=== PATIENT | male | born 1970 | race African-American/Black ===

== ENCOUNTER 2016-11-07 02:33 | Inpatient (IN) | payer OTHER ==
[2016-11-07 02:46] VITALS: BMI 21.4
--- NOTE | 2016-11-07 03:04 | PDOC ---
[id number] 46 year old male with significant medical hx of borderline DM who is presenting to the ED with abdominal pain and nausea since 9:30 PM. Patient complains of diffuse abdominal pain that he describes as a pressure. He reports having a small BM earlier in the evening that was normal, without any blood or mucous. The patient also endorses passing more gas than usual. The patient came to the ED tonight because he couldnt sleep from the discomfort. The patients last meal was a piece of pork and some vegetables. He states that other people ate the same food and they felt fine afterwards. Denies fever, chills, dysuria, vomiting, or diarrhea. 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 <Emily Patino - Last Filed: 11/07/16 03:53> <Moy Singh - Last Filed: 12/06/16 23:20> - General Chief Complaint: Pain, Acute Stated Complaint: ABDOMINAL PAIN Past History <Emily Patino - Last Filed: 11/07/16 03:53> - Past Medical History Anemia: No Asthma: No Cancer: No Cardiac Disorders: No CVA: No COPD: No CHF: No Dementia: No Diabetes: No GI Disorders: No Disorders: No HTN: No Hypercholesterolemia: No Liver Disease: No Seizures: No Thyroid Disease: No Other medical history: HIV - Surgical History Abdominal Surgery: No Appendectomy: No Cardiac Surgery: No Cholecystectomy: No Lung Surgery: No Neurologic Surgery: No Orthopedic Surgery: No - Psycho/Social/Smoking Cessation Hx Suicidal Ideation: No Smoking History: Never smoked Hx Alcohol Use: Yes (OCCASIONAL) Drug/Substance Use Hx: No Substance Use Type: Alcohol Hx Substance Use Treatment: No <Moy Singh - Last Filed: 12/06/16 23:20> - Past Medical History Allergies/Adverse Reactions: Allergies Allergy/AdvReac Type Severity Reaction Status Date / Time No Known Drug Allergies Allergy Verified 11/07/16 12:01 PINEAPPLE Allergy Mild Hives Uncoded 11/07/16 12:01 Home Medications: Ambulatory Orders Emtricitabine/Tenofovir (Tdf) [Truvada 200 mg-300 mg Tablet] 1 each PO DAILY Oxycodone HCl/Acetaminophen [Percocet 5-325 mg Tablet] 1 tab PO Q4H PRN #20 tablet MDD 6 11/09/16 Review of Systems - Review of Systems Comments:: 11/07/16 04:03 GENERAL/CONSTITUTIONAL: No fever or chills. No weakness. HEAD, EYES, EARS, NOSE AND THROAT: No change in vision. No ear pain or discharge. No sore throat. CARDIOVASCULAR: No chest pain or shortness of breath. RESPIRATORY: No cough, wheezing, or hemoptysis. GASTROINTESTINAL: Abdominal pain, nausea. No vomiting, diarrhea or constipation. GENITOURINARY: No dysuria, frequency, or change in urination. MUSCULOSKELETAL: No joint or muscle swelling or pain. No neck or back pain. SKIN: No rash NEUROLOGIC: No headache, vertigo, loss of consciousness, or change in strength/ sensation. <Emily Patino - Last Filed: 11/07/16 03:53> *Physical Exam - Vital Signs Last Vital Signs Temp Pulse Resp BP Pulse Ox 98.3 F 82 18 156/86 99 11/07/16 02:42 11/07/16 02:42 11/07/16 02:42 11/07/16 02:42 11/07/16 02:42 - Physical Exam Comments: 11/07/16 04:03 GENERAL: Awake, alert, and fully oriented, in no acute distress HEAD: No signs of trauma EYES: PERRLA, EOMI, sclera anicteric, conjunctiva clear ENT: Auricles normal inspection, hearing grossly normal, nares patent, oropharynx clear without exudates. Moist mucosa NECK: Normal ROM, supple, no lymphadenopathy, JVD, or masses LUNGS: Breath sounds equal, clear to auscultation bilaterally. No wheezes, and no crackles HEART: Regular rate and rhythm, normal S1 and S2, no murmurs, rubs or gallops ABDOMEN: Abdominal distention. Diffuse abdominal pain upon palpation. No McBurneys point tenderness, no Jefferson sign. Hypoactive bowel sounds. Prominent umbilicus without hernia. EXTREMITIES: Normal range of motion, no edema. No clubbing or cyanosis. No cords, erythema, or tenderness NEUROLOGICAL: Cranial nerves II through XII grossly intact. Normal speech, normal gait SKIN: Warm, Dry, normal turgor, no rashes or lesions noted. ENDOCRINE: No increased thirst. No abnormal weight change. HEMATOLOGIC/LYMPHATIC: No anemia, easy bleeding, or history of blood clots. ALLERGIC/IMMUNOLOGIC: No hives or skin allergy. <Emily Patino - Last Filed: 11/07/16 03:53> - Vital Signs Last Vital Signs Temp Pulse Resp BP Pulse Ox 98.3 F 82 18 156/86 99 11/07/16 02:42 11/07/16 02:42 11/07/16 02:42 11/07/16 02:42 11/07/16 02:42 <Moy Singh - Last Filed: 12/06/16 23:20> ED Treatment Course - LABORATORY CBC & Chemistry Diagram: 11/07/16 03:30 11/07/16 03:30 - Medications Given in the ED: ED Medications Discontinued Medications Generic Name Dose Route Start Last Admin Trade Name Jamshid PRN Reason Stop Dose Admin Ondansetron HCl 4 mg 11/07/16 03:43 11/07/16 03:51 Zofran Injection IVPUSH 11/07/16 03:44 4 mg ONCE ONE Administration <Emily Patino - Last Filed: 11/07/16 03:53> - LABORATORY CBC & Chemistry Diagram: 11/09/16 06:45 11/07/16 03:30 <Moy Singh - Last Filed: 12/06/16 23:20> Medical Decision Making - Medical Decision Making 11/07/16 06:40 This is a 46yo m with abdominal pain and nausea. He has a mildly distended abdomen and pain on palpation. He has no rebound or guarding. Appears mildly dehydrated. Labs are grossly wnl. His PE is reassuring. He will be signed out to the next MD who will follow up the CT and disposition the patient. 11/07/16 07:02 CT shows evidence of appendicitis with 8.8mm dilated appendix; no other pathology acutely noted. I have started the patient on antibiotics, analgesia, antiemetics. I have paged surgery information technology administrator and will admit for this. <Moy Singh - Last Filed: 12/06/16 23:20> *DC/Admit/Observation/Transfer - Attestations Scribe Attestion: 11/07/16 04:05 Documentation prepared by Emily Patino, acting as medical transport specialist for Moy Singh MD. <Sukumar,Emily - Last Filed: 11/07/16 03:53> - Discharge Dispostion Admit: Yes - Attestations Physician Attestion: 12/06/16 23:19 I, Dr. Moy Singh MD, attest that this document has been prepared under my direction and personally reviewed by me in its entirety. I further attest, that it accurately reflects all work, treatment, procedures and medical decision -making performed by me. <Moy Singh - Last Filed: 12/06/16 23:20> Diagnosis at time of Disposition: Appendicitis Qualifiers: Appendicitis type: acute appendicitis Acute appendicitis type: other Qualified Code(s): K35.89 - Other acute appendicitis - Discharge Dispostion Condition at time of disposition: Guarded - Prescriptions - Referrals
[2016-11-07] MEDS ORDERED: ONDANSETRON 4 MG/2 ML VIAL ONE ×2 (03:43→07:17)
[2016-11-07] MEDS ORDERED: ONDANSETRON 4 MG/2 ML VIAL IVPUSH ONE ×2 (03:43→07:03)
[2016-11-07] MEDS ORDERED: HYOSCYAMINE SULFATE 0.375 MG TAB.ER.12H PO ONE (03:43)
[2016-11-07 04:08] LABS: ALBUMIN 4.1 g/dl (3.4-5.0); ANION GAP 10 (8-16); BILIRUBIN,TOTAL 0.9 mg/dL (0.2-1.0); CALCIUM 8.9 mg/dL (8.5-10.1); CO2 28 mmol/L (21-32); CREATININE 1.3 mg/dL (0.7-1.3); GLUCOSE,RANDOM 159 mg/dL (74-106); SGPT/ALT 31 U/L (12-78); TOT PROT 7.1 g/dl (6.4-8.2)
[2016-11-07 04:10] LABS: ALK PHOS 83 U/L (45-117); TROPONIN I < 0.02 ng/ml (0.00-0.05)
[2016-11-07 04:19] LABS: SGOT/AST 27 U/L (15-37)
[2016-11-07 04:39] LABS: URINE APPEARANCE CLEAR; URINE BILIRUBIN NEGATIVE (NEGATIVE); URINE BLOOD NEGATIVE (NEGATIVE); URINE COLOR LTYELLOW; URINE GLUCOSE (UA) 2+ (NEGATIVE); URINE KETONE TRACE (NEGATIVE); URINE LEUK ESTERASE NEGATIVE (NEGATIVE); URINE NITRITE NEGATIVE (NEGATIVE); URINE PROTEIN NEGATIVE (NEGATIVE); URINE UROBILINOGEN NEGATIVE E.U./dl (0.2-1.0)
[2016-11-07] MEDS ORDERED: morphine CARPU-JECT 4 MG/1 ML DISP.SYRIN ONE ×2 (05:44→07:16)
[2016-11-07] MEDS ORDERED: morphine CARPU-JECT 4 MG/1 ML DISP.SYRIN IVPUSH ONE (06:09)
[2016-11-07 06:42] LABS: BASOPHIL 0.3 % (0-2.0); MCHC 32.5 g/dl (32.0-35.9); MEAN CELL VOLUME 89.2 fl (80-96); MEAN PLT VOLUME 8.7 fl (7.5-11.1); NEUTROPHILS 79.4 % (42.8-82.8); PLATELET COUNT 285 K/MM3 (134-434); RDW 14.1 % (11.9-15.9); WHITE BLOOD COUNT 15.7 K/mm3 (4.0-10.0)
[2016-11-07] MEDS ORDERED: LEVOFLOXACIN 750 MG IVPB 150 ML IVPB ONE ×3 (07:03→16:09)
[2016-11-07] MEDS ORDERED: CIPROFLOXACIN 400 MG/D5W 200 ML IVPB ONE (07:03)
[2016-11-07] MEDS ORDERED: morphine CARPU-JECT 2 MG/1 ML DISP.SYRIN IVPUSH ONE (07:03)
[2016-11-07] MEDS ORDERED: morphine CARPU-JECT 2 MG/1 ML DISP.SYRIN ONE (07:15)
[2016-11-07] MEDS ORDERED: SODIUM CHLORIDE 1,000 ML IV STA (07:22)
[2016-11-07] MEDS ORDERED: SODIUM CHLORIDE 0.9% 500 ML INFUS.BAG IV ONE (07:27)
[2016-11-07] MEDS ORDERED: METRONIDAZOLE 500 MG PREMIXED 100 ML IVPB ONE ×5 (07:27→20:00)
--- NOTE | 2016-11-07 07:38 | PDOC ---
*Physical Exam - Vital Signs Last Vital Signs Temp Pulse Resp BP Pulse Ox 98.3 F 82 18 156/86 99 11/07/16 02:42 11/07/16 02:42 11/07/16 02:42 11/07/16 02:42 11/07/16 02:42 ED Treatment Course - LABORATORY CBC & Chemistry Diagram: 11/07/16 03:30 11/07/16 03:30 - ADDITIONAL ORDERS Additional order review: Laboratory Results 11/07/16 11/07/16 11/07/16 04:15 03:30 03:30 Sodium 142 Potassium 4.7 Chloride 104 Carbon Dioxide 28 Anion Gap 10 BUN 25 H Creatinine 1.3 Creat Clearance w eGFR 59.17 Random Glucose 159 H Calcium 8.9 Total Bilirubin 0.9 AST 27 ALT 31 Alkaline Phosphatase 83 Creatine Kinase 215 Creatine Kinase Index 0.7 CK-MB (CK-2) 1.602 CK-MB (CK-2) Rel Index Cancelled Troponin I < 0.02 Total Protein 7.1 Albumin 4.1 Lipase 96 Urine Color Ltyellow Urine Appearance Clear Urine pH 6.0 Ur Specific [place] 1.026 Urine Protein Negative Urine Glucose (UA) 2+ H Urine Ketones Trace H Urine Blood Negative Urine Nitrite Negative Urine Bilirubin Negative Urine Urobilinogen Negative Ur Leukocyte Esterase Negative 11/07/16 03:30 RBC 4.90 MCV 89.2 MCHC 32.5 RDW 14.1 MPV 8.7 Neutrophils % 79.4 Lymphocytes % 13.5 Monocytes % 5.8 Eosinophils % 1.0 Basophils % 0.3 - Medications Given in the ED: ED Medications Discontinued Medications Generic Name Dose Route Start Last Admin Trade Name Jamshid PRN Reason Stop Dose Admin Hyoscyamine Sulfate 0.375 mg 11/07/16 03:43 11/07/16 04:31 Levbid 0.375mg Er Tab PO 11/07/16 03:44 0.375 mg ONCE ONE Administration Morphine Sulfate 4 mg 11/07/16 06:09 11/07/16 06:10 Morphine Injection - IVPUSH 11/07/16 06:10 4 mg ONCE ONE Administration Ondansetron HCl 4 mg 11/07/16 03:43 11/07/16 03:51 Zofran Injection IVPUSH 11/07/16 03:44 4 mg ONCE ONE Administration Progress Note - Progress Note Progress Note: The patient was endorsed to me at [address] Singh pending surgical consult. I spoke to just now. The plan is to admit to his service and appendectomy later today. *DC/Admit/Observation/Transfer Diagnosis at time of Disposition: Appendicitis Qualifiers: Appendicitis type: acute appendicitis - Discharge Dispostion Condition at time of disposition: Stable Admit: Yes - Referrals Referrals: Nikunj Oliveira MD [Primary Care Provider] - - Patient Instructions - Post Discharge Activity
[2016-11-07] MEDS ORDERED: PROPOFOL 20 ML ONE ×2 (13:35)
[2016-11-07] MEDS ORDERED: MIDAZOLAM HCL 2 MG/2 ML SINGLE DOSE VIAL ONE (13:35)
[2016-11-07] MEDS ORDERED: ROCURONIUM BROMIDE 50 MG/5 ML VIAL ONE (13:35)
--- NOTE | 2016-11-07 13:40 | HP ---
Admitting History and Physical - Admission Chief Complaint: abdominal pain History of Present Illness: Patient is a 46 year old male with significant medical hx of borderline DM who is presenting to the ED with abdominal pain and nausea since 9:30 PM. Patient complains of diffuse abdominal pain that he describes as a pressure. He reports having a small BM earlier in the evening that was normal, without any blood or mucous. The patient also endorses passing more gas than usual. The patient came to the ED tonight because he couldnt sleep from the discomfort. The patients last meal was a piece of pork and some vegetables. He states that other people ate the same food and they felt fine afterwards. Denies fever, chills, dysuria, vomiting, or diarrhea. History Source: Patient Limitations to Obtaining History: No Limitations - Past Medical History Endocrine: Yes: Other (pre-diabetes) - Past Surgical History Past Surgical History: Yes: None - Smoking History Smoking history: Never smoked - Alcohol/Substance Use Hx Alcohol Use: Yes (OCCASIONAL) - Social History History of Recent Travel: No Home Medications - Allergies Allergies/Adverse Reactions: Allergies Allergy/AdvReac Type Severity Reaction Status Date / Time No Known Drug Allergies Allergy Verified 11/07/16 12:01 PINEAPPLE Allergy Mild Hives Uncoded 11/07/16 12:01 - Home Medications Home Medications: Ambulatory Orders Emtricitabine/Tenofovir (Tdf) [Truvada 200 mg-300 mg Tablet] 1 each PO DAILY Review of Systems - Review of Systems Gastrointestinal: reports: Abdominal Pain (diffuse, most prominent at RLQ) Physical Examination Vital Signs: Vital Signs Temperature 1120 F H 11/07/16 11:37 Pulse Rate 72 11/07/16 11:37 Respiratory Rate 18 11/07/16 11:37 Blood Pressure 150/77 11/07/16 11:37 O2 Sat by Pulse Oximetry (%) 98 11/07/16 11:37 Constitutional: Yes: Well Nourished, No Distress HENT: Yes: Normocephalic Neck: Yes: Supple Cardiovascular: Yes: Regular Rate and Rhythm Respiratory: Yes: CTA Bilaterally Gastrointestinal: Yes: Distention (MILD), Tenderness (DIFFUSE), Tenderness, Rebound (RLQ) Extremities: Yes: WNL Peripheral Pulses WNL: Yes Neurological: Yes: Alert, Oriented Labs: CBC, BMP 11/07/16 03:30 11/07/16 03:30 Imaging - Results Cat Scan: Report Reviewed, Image Reviewed Problem List - Problems (1) Appendicitis Code(s): K37 - UNSPECIFIED APPENDICITIS Qualifiers: Appendicitis type: acute appendicitis Assessment/Plan NPO IV ANTIBIOTICS IVF ADMIT FOR LAPAROSCOPIC APPENDECTOMY
[2016-11-07] MEDS ORDERED: ONDANSETRON 4 MG/2 ML VIAL IVPUSH PRN (13:51)
[2016-11-07] MEDS ORDERED: oxyCODONE HCL 5 MG TABLET PO PRN ×2 (13:51→16:09)
[2016-11-07] MEDS ORDERED: HYDROmorphone HCL CARPU-JECT 1 MG/1 ML DISP.SYRIN IVPUSH PRN (13:51)
[2016-11-07] MEDS ORDERED: LACTATED RINGERS SOLUTION 1,000 ML IV SCH (14:00)
[2016-11-07] MEDS ORDERED: METRONIDAZOLE 500 MG PREMIXED 500 MG/100 ML MG IVPB ONE (14:14)
[2016-11-07] MEDS ORDERED: HYDROmorphone HCL/PF 1 MG/ML VIAL (FOR PYXIS CHARGING ONLY) ONE ×2 (14:17→14:18)
[2016-11-07] MEDS ORDERED: GLYCOPYRROLATE 0.2 MG/1 ML VIAL ONE ×2 (14:27→14:29)
[2016-11-07] MEDS ORDERED: NEOSTIGMINE METHYLSULFATE 0.5 MG/ML - 10 ML MDV ONE (14:27)
--- NOTE | 2016-11-07 15:58 | OP ---
Operative Note - Note: Operative Date: 11/07/16 Pre-Operative Diagnosis: Acute Appendicitis Operation: Laparoscopic appendectomy Findings: acute suppurative appendicitis Post-Operative Diagnosis: Same as Pre-op Surgeon: Tez Willoughby Anesthesiologist/UNDER TRIMMER: Dilia Jones Anesthesia: General Specimens Removed: APPENDIX Estimated Blood Loss (mls): 3 Operative Report Dictated: Yes
[2016-11-07] MEDS ORDERED: oxyCODONE HCL 5 MG TABLET ONE (18:53)
[2016-11-07] MEDS ORDERED: oxyCODONE HCL 5 MG TABLET PO ONE (19:00)
--- NOTE | 2016-11-08 07:40 | OP ---
DATE OF OPERATION: 11/07/2016 PROCEDURE: Laparoscopic appendectomy. PREOPERATIVE DIAGNOSIS: Acute appendicitis. POSTOPERATIVE DIAGNOSIS: Acute appendicitis. SURGEON: Tez Willoughby MD DIRECTOR SALES AND TRADE MARKETING: MS Ramsey ANESTHESIA: General endotracheal. FINDINGS ON PROCEDURE: This is a 46-year-old male who presents with diffuse abdominal pain for less than 1 day and physical examination of equivocal diffuse tenderness, but more prominently in the right lower quadrant. Patient had a white blood cell count of 15,000, and a CT scan of the abdomen and pelvis revealed dilated appendix consistent with acute appendicitis. The patient was advised appendectomy and consent was obtained after discussing the risks, benefits, and alternatives of the procedure. DESCRIPTION OF PROCEDURE: Patient was brought to the operating room and placed in supine position. General endotracheal anesthesia was administered. The abdomen was prepped and draped in the usual sterile fashion. The peritoneal cavity was entered using the Optiview technique via a 5-mm incision through the umbilicus. The 5-mm 0-degree scope was inserted through the optimal port, and the peritoneal cavity was entered, pneumoperitoneum was established. The patient was then placed in steep Trendelenburg aync-ioxy-pcgm position. A 5 -mm port was inserted at the left lower quadrant and another 12-mm port was inserted at the suprapubic region to the left of the midline. Some seropurulent fluid at the right lower quadrant was suctioned to avoid spreading of the infection. The appendix was noted to be distended and with some phlegmon at the mid body of the structure. The congenital adhesions of the cecum to the gutter covering the base of the appendix was taken down using the spatula combined with the hook dissector connected to Bovie cautery. This then exposed the base of the appendix. A window was made between the mesoappendix and the base of the appendix using the [place] dissector. The base of the appendix was then transected using the Endo BRIAN 45 2.5-mm stapling device as close to the base as possible. After this, the mesoappendix was retracted anteriorly and it was also stapled using the Endo BRIAN 45 2.5-mm stapling device. After completion of the appendectomy, the organ was placed in an Endobag and extracted via the suprapubic incision. The pelvis, which contained some seropurulent fluid was also irrigated and suctioned. The right paracolic gutter as well as the right perihepatic gutter was inspected and was noted to be free of seropurulent fluid. After further careful inspection of the right lower quadrant area, the pneumoperitoneum was evacuated and the ports were removed. The wounds were closed with 1 figure-of-8 Vicryl 0 suture for the fascia of the suprapubic incision and subcuticular Biosyn 4-0 sutures for the skin. The wound closure was reinforced with Dermabond. The patient was successfully extubated and transferred to the post-anesthesia care unit in satisfactory condition. ESTIMATED BLOOD LOSS: About 3 mL. WOUND CLASS: Contaminated. The patient had already been given 5 mg Levaquin and 2 doses of Flagyl prior to the start of the procedure. Connie [id number] MTDD
[2016-11-08] MEDS ORDERED: LEVOFLOXACIN 750 MG IVPB 150 ML IVPB ONE (10:00)
[2016-11-08] MEDS: METRONIDAZOLE 500 MG PREMIXED 100 ML IVPB SCH ×4 (10:00→17:37)
[2016-11-08] MEDS ORDERED: BISACODYL 10 MG SUPP.RECT RC ONE ×2 (11:03→11:15)
--- NOTE | 2016-11-08 11:11 | PN ---
Progress Note (short form) - Note Progress Note: Surgery Attending POD#1 LAPAROSCOPIC APPENDECTOMY HAS DISTENDED ABDOMEN, NO FLATUS AFEBRILE, VSS ABD: WOUNDS INTACT, DISTENDED AND TYMPANITIC A: S/P LAP APPENDECTOMY, POST-OP ILEUS P: F/U CBC DULCOLAX SUPPOSITORY X 2 STAY ON CLEARS AND HOLD IF PATIENT FEELS NAUSEATED CONTINUE IVF QUAN-OPERATIVE ABX X 24 HOURS OOB, ENCOURAGE AMBULATION Problem List - Problems (1) Appendicitis Code(s): K37 - UNSPECIFIED APPENDICITIS Qualifiers: Appendicitis type: acute appendicitis
[2016-11-08] MEDS ORDERED: ACETAMINOPHEN 325 MG TABLET (FP) PO PRN ×2 (11:13→11:31)
[2016-11-08] MEDS ORDERED: KETOROLAC TROMETHAMINE 30 MG/1 ML VIAL IM PRN ×2 (11:13→11:30)
[2016-11-08 11:16] LABS: BASOPHIL 0.4 % (0-2.0); EOSINOPHIL 0.7 % (0-4.5); MCH 28.9 pg (25.7-33.7); MCHC 32.3 g/dl (32.0-35.9); MEAN CELL VOLUME 89.7 fl (80-96); MEAN PLT VOLUME 7.3 fl (7.5-11.1); NEUTROPHILS 66.8 % (42.8-82.8); PLATELET COUNT 239 K/MM3 (134-434); RDW 14.2 % (11.9-15.9)
[2016-11-08] MEDS ORDERED: oxyCODONE HCL 5 MG TABLET PO PRN (11:24)
[2016-11-08] MEDS: LACTATED RINGERS SOLUTION 1,000 ML IV SCH ×2 (11:26→17:37)
[2016-11-08] MEDS ORDERED: KETOROLAC TROMETHAMINE 30 MG/1 ML VIAL IVPUSH PRN (11:43)
[2016-11-08] MEDS ORDERED: METRONIDAZOLE 500 MG PREMIXED 100 ML IVPB SCH (18:00)
[2016-11-09] MEDS: LACTATED RINGERS SOLUTION 1,000 ML IV SCH (00:03)
[2016-11-09 07:54] LABS: BASOPHIL 0.4 % (0-2.0); EOSINOPHIL 2.4 % (0-4.5); MCH 29.5 pg (25.7-33.7); MCHC 32.9 g/dl (32.0-35.9); MEAN CELL VOLUME 89.7 fl (80-96); MEAN PLT VOLUME 7.7 fl (7.5-11.1); NEUTROPHILS 59.9 % (42.8-82.8); PLATELET COUNT 218 K/MM3 (134-434); RDW 13.9 % (11.9-15.9); WHITE BLOOD COUNT 8.9 K/mm3 (4.0-10.0)
--- NOTE | 2016-11-09 09:20 | PN ---
Progress Note (short form) - Note Progress Note: POD#2 Pt without any nausea or emesis, he tolerated a clear liquid diet and is passing flatus. Vital Signs Period Temp Pulse Resp BP Sys/Deutsch Pulse Ox Last 24 Hr 97.6 F-98.6 F 61-81 18-18 119-149/51-79 100 PE: GEN:A&0x3, NAD ABD: soft, non-distended, inc tenderness. Inc c/d/i with dermabond. CBC, BMP 11/09/16 06:45 11/07/16 03:30 A/p: 26 yo male s/p lap appy, POD#2 Now with BF, advance diet as tolerated to diabetic discontinue IVF plan for possilbe discharge today. <Nanette Kirby - Last Filed: 11/09/16 09:15> - Note Progress Note: Post-op ileus and leukocytosis resolved. Advance diet and d/c home today. F/U at the office in 10-14 days. <Tez Willoughby - Last Filed: 11/09/16 09:45> Problem List - Problems (1) Appendicitis Code(s): K37 - UNSPECIFIED APPENDICITIS Qualifiers: Appendicitis type: acute appendicitis <Tez Willoughby - Last Filed: 11/09/16 09:45>
[2016-11-09 11:33] VITALS: BP 135/74; PULSE 71; TEMP 98.6
--- NOTE | 2016-11-09 15:06 | PATH ---
Surgical Pathology Report Patient Name: OSKAR ESPARZA [facility]. Rec. #: [id number] /Age/Gender: 1970 (Age: 46) / M Account: [id number] Location: [facility] MED/SURG Taken: 11/07/2016 Received: 11/08/2016 Reported: 11/09/2016 Physicians: Tez Willoughby M.D. Specimen(s) Received APPENDIX Clinical History Appendicitis Final Diagnosis APPENDIX, APPENDECTOMY: ACUTE APPENDICITIS AND PERIAPPENDICITIS. Electronically Signed Spe[place] Mills M.D. Gross Description Received in formalin, labeled "appendix" is an 8 cm. in length vermiform appendix with a stapled margin of resection and moderate attached fat. The serosa is oliveros-bird. Sectioning reveals a dilated lumen containing brown fecal material. The wall of the appendix averages 0.1 cm in thickness. Accounts Receivable Supervisor sections are submitted in one cassette. /11/08/2016 saudi11/08/2016
== END 2016-11-09 15:10 | disposition home or self-care (01) | DRG 225 ==
LOC: JER 02:33 → UNDOADMIN 07:38 → JERBED 07:38 → JASUSAT 12:08 → J8W 17:50 → JASUSAT 17:51 → UNDOADMIN 17:51 → J8W 11-08 09:42
PROVIDERS: ADMIT Surgery; ATTEND Surgery
PROC: 0DTJ4ZZ Resection of Appendix, Percutaneous Endoscopic Approach (ICD-10-PCS; principal; 2016-11-07 12:00)
DX: K35.80 Unspecified acute appendicitis (principal)
CPT/HCPCS: 36415; 74177-TC; 80053; 81003; 82550; 82553; 83690; 84484; 85025; 86850; 86900; 86901; 88304-TC; 94760; 99282-25

== ENCOUNTER 2018-07-01 12:09 | Emergency (ER) | payer OTHER ==
[2018-07-01 12:15] VITALS: BMI 21.7
--- NOTE | 2018-07-01 12:25 | PDOC ---
History of Present Illness - General Chief Complaint: Pain Stated Complaint: STOMACH PAIN Time Seen by Provider: 07/01/18 12:25 History Source: Patient - History of Present Illness Initial Comments: 07/01/18 12:43 The patient is a 48 year old male who presents with a 1 week h/o abdominal pain. Pain is intermittent, "pressure like" and extends from his B/L quadrants to his back and is worse at night and when he lays supine. Tolerating PO intake , however notes decreased appetite 2/2 to his symptoms. Last BM was Monday and was normal, patient normally has 1 BM every 2-3 days and had took a laxative on Monday to induce his most recent bowel movement. Endorses increased urgency/ frequency w/o hematuria/dysuria. Denies testicular or scrotal pain. Spoke with his PMD this morning who suggested patient come to the ED for further evaluation. Patient works as a school resource officer for the [employer] and spends a majority of the weekdays sitting however notes he goes to the gym 2-3x weekly. Denies any recent dietary changes. The patient denies chest pain, shortness of breath, abdominal pain, fevers/ chills, headache, cough, numbness/tingling. NKDA Surgical: Appendectomy (2017) Social: denies nicotine, social alcohol, denies recreational drugs PMD: Dr. Oliveira As per EMR patient was last evaluated in our ED in 2016 for abdominal pain at which time he was diagnosed to have acute appy. Past History - Past Medical History Allergies/Adverse Reactions: Allergies Allergy/AdvReac Type Severity Reaction Status Date / Time No Known Drug Allergies Allergy Verified 07/01/18 12:13 PINEAPPLE Allergy Mild Hives Uncoded 07/01/18 12:13 Home Medications: Ambulatory Orders Docusate Liquid [Colace Liquid -] 50 mg PO TID PRN #473 ml 07/01/18 Sennosides [Senna Laxative] 8.6 mg PO DAILY PRN #5 tablet 07/01/18 Anemia: No Asthma: No Cancer: No Cardiac Disorders: No CVA: No COPD: No CHF: No Dementia: No Diabetes: No GI Disorders: No Disorders: No HTN: No Hypercholesterolemia: No Liver Disease: No Seizures: No Thyroid Disease: No - Surgical History Abdominal Surgery: No Appendectomy: Yes Cardiac Surgery: No Cholecystectomy: No Lung Surgery: No Neurologic Surgery: No Orthopedic Surgery: No - Suicide/Smoking/Psychosocial Hx Smoking History: Never smoked Hx Alcohol Use: Yes (OCCASIONAL) Drug/Substance Use Hx: No Substance Use Type: Alcohol Hx Substance Use Treatment: No Review of Systems - Review of Systems Constitutional: No: Chills, Fever Respiratory: No: Cough, Shortness of Breath Cardiac (ROS): No: Chest Pain, Lightheadedness, Palpitations, Syncope ABD/GI: Yes: Poor Appetite, Abdominal cramping. No: Constipated, Diarrhea, Nausea, Vomiting : Yes: Frequency, Urgency. No: Burning, Dysuria *Physical Exam - Vital Signs Last Vital Signs Temp Pulse Resp BP Pulse Ox 98.4 F 87 18 160/93 99 07/01/18 12:11 07/01/18 12:11 07/01/18 12:11 07/01/18 12:11 07/01/18 12:11 - Physical Exam General Appearance: Yes: Nourished, Thin HEENT: positive: Normal Voice, Hearing Grossly Normal Neck: positive: Trachea midline, Supple Respiratory/Chest: positive: Lungs Clear, Normal Breath Sounds. negative: Crackles, Wheezing Cardiovascular: positive: S1, S2. negative: JVD, Murmur Gastrointestinal/Abdominal: positive: Normal Bowel Sounds, Soft. negative: Distended, Guarding, Rebound, Tenderness Male Genitalia: positive: other (No inguinal deficit B/L ). negative: testicular tenderness Musculoskeletal: negative: CVA Tenderness (R), CVA Tenderness (L) Extremity: positive: Normal Capillary Refill, Normal Inspection Integumentary: positive: Normal Color, Dry, Warm Neurologic: positive: Fully Oriented, Alert ED Treatment Course - LABORATORY CBC & Chemistry Diagram: 07/01/18 13:26 07/01/18 14:50 Medical Decision Making - Medical Decision Making 07/01/18 12:48 48 year old male with B/L lower quadrant abdominal pain that radiates to his lower back. H/o excessive flatulence. Works as manager business. H/o increased urgency/frequency. Soft belly, normal BS on PE. Straight leg test negative. Frontal Dx: UTI, gastritis, pancreatitis, muscle spasm, retained stool Also consider radiculopathy, disc herniation, less likely testicular torsion. Will obtain basic labs, UA. Testicular exam pending. Tylenol + IV fluids. Reassess. 07/01/18 13:41 No inguinal deficit on testicular exam; normal testicular lie Bedside U/S shows no hydronephrosis, bladder non-distended Aorta < 3 cm, no AAA, normal aorta Abdominal XR to r/o retained stool as etiology of pain 07/01/18 14:02 Leukocytosis 14.9 07/01/18 14:12 UA clean Patient at XR; as patient has leukocytosis, will obtain CT abdomen to evaluate for diverticulitis or other abdominal pathology 07/01/18 15:41 XR shows retained stool, patient states he wishes to have Patient reassessed @ bedside. Drinking PO contrast Pain improved but still present 07/01/18 18:50 Patient reassesed @ bedside. One small BM during course of evaluation. Pain improved, requesting PO intake 07/01/18 19:38 CT abdomen negative for acute pathology Will discharge patient home with supportive care, Senna/Colace, and instruction to f/u with PMD in the next 2 days. I discussed the physical exam findings, ancillary test results and final diagnoses with the patient. I answered all of the patient's questions. The patient was satisfied with the care received and felt comfortable with the discharge plan and treatment plan. The patient will return to the Emergency Department with any new, persistent or worsening symptoms. *DC/Admit/Observation/Transfer Diagnosis at time of Disposition: Abdominal pain, Constipation - Discharge Dispostion Disposition: HOME Condition at time of disposition: Good Decision to Admit order: No - Prescriptions Prescriptions: Docusate Liquid [Colace Liquid -] 50 mg PO TID PRN #473 ml PRN Reason: Constipation Sennosides [Senna Laxative] 8.6 mg PO DAILY PRN #5 tablet PRN Reason: Constipation - Referrals Referrals: Nikunj Oliveira MD [Primary Care Provider] - - Patient Instructions Printed Discharge Instructions: Increased Dietary Fiber May Improve Constipation Conditions With Pelvic Neeraj, DI for Constipation Additional Instructions: You were evaluated today for your abdominal pain. Your cat scan showed no concerning findings. Your x-ray show retained stool. At this time you are safe for discharge home. Please follow-up with your primary care doctor in the next 3 days. Drink plenty of water and advance your diet as tolerated. Eat high fiber foods as indicated in your discharge instructions. We have sent some medications to your pharmacy, please take as needed for your constipation. Return to the Emergency Department for any new/worsening/concerning symptoms. - Post Discharge Activity
[2018-07-01] MEDS ORDERED: ACETAMINOPHEN 1000 MG/100 ML VIAL (NON FORMULARY) IVPB ONE (12:42)
[2018-07-01] MEDS ORDERED: SODIUM CHLORIDE 0.9% 500 ML INFUS.BAG IV ONE (12:42)
[2018-07-01] MEDS ORDERED: MAG HYDROX/AL HYDROX/SIMETH -MYLANTA- ORAL SUSPENSION PO ONE (12:50)
[2018-07-01] MEDS ORDERED: FAMOTIDINE 20 MG/50 ML IVPB 20 MG/50 ML MG IVPB ONE ×2 (12:50→13:07)
[2018-07-01] MEDS ORDERED: MAG HYDROX/AL HYDROX/SIMETH 30 ML UNIT-DOSE CUP ONE (13:07)
[2018-07-01] MEDS ORDERED: ACETAMINOPHEN INJECTION 100 ML IVPB ONE (13:07)
[2018-07-01 13:41] LABS: BASO % 0.7 % (0-2.0); EOS % 1.3 % (0-4.5); HEMATOCRIT 45.7 % (35.4-49); HEMOGLOBIN 14.6 GM/dL (11.7-16.9); LYMPH % 19.3 % (8-40); MCH 27.6 pg (25.7-33.7); MCHC 31.9 g/dl (32.0-35.9); MEAN CELL VOLUME 86.6 fl (80-96); MEAN PLT VOLUME 8.2 fl (7.5-11.1); MONO % 12.4 % (3.8-10.2); NEUT % 66.3 % (42.8-82.8); PLATELET COUNT 293 K/MM3 (134-434); RBC 5.28 M/mm3 (4.00-5.60); RDW 13.5 % (11.9-15.9); WHITE BLOOD COUNT 14.9 K/mm3 (4.0-10.0)
[2018-07-01 13:43] LABS: URINE APPEARANCE CLEAR; URINE BILIRUBIN NEGATIVE (<2.0 mg/dL); URINE COLOR LTYELLOW; URINE GLUCOSE (UA) NEGATIVE (NEGATIVE); URINE KETONE NEGATIVE (NEGATIVE); URINE LEUK ESTERASE NEGATIVE (NEGATIVE); URINE NITRITE NEGATIVE (NEGATIVE); URINE PROTEIN NEGATIVE (NEGATIVE); URINE UROBILINOGEN NEGATIVE mg/dL (0.2-1.0)
--- NOTE | 2018-07-01 14:19 | PDOC ---
Attending Attestation - Resident Resident Name: Julia Mohanica - ED Attending Attestation I have performed the following: I have examined & evaluated the patient, The case was reviewed & discussed with the resident, I agree w/resident's findings & plan, Exceptions are as noted - HPI HPI: 07/01/18 14:14 48 yo male here co lower abd pain and flank pain. intermittent x one week. also c/o constipation. no f/c no urinary complaints. no n/v. tolerating PO. has had colonoscopy in the past . prior appendectomy. no hematuria. no h/o renal stones. - Physicial Exam PE: 07/01/18 14:15 awake alert lungs clear bilaterally heart rrr no mrg abd soft mild suprapubic ttp. no cva tenderenss. ext wwp no edema. no calf tenderness. - Medical Decision Making 07/01/18 14:17 differential uti, renal colic, plan ua bedside renal us, aortic us. pt labs reveal increased wbc 15. will obtain ct a/p r/o diverticulitis. focused ED ultrasound renal , indication flank pain bilateral kidneys scanned in two planes. no hydronephrosis bilaterally bladder nondistended. impression: no hydronephrosis normal renal us. aorta scanned in two planes, indication: flank pain. all measurements <3cm. impression: no AAA, normal aorta.
[2018-07-01 15:19] LABS: ALBUMIN 3.4 g/dl (3.4-5.0); ALK PHOS 78 U/L (45-117); ANION GAP 5 MMOL/L (8-16); BILIRUBIN,TOTAL 1.1 mg/dL (0.2-1); BLOOD UREA NITROGEN 17 mg/dL (7-18); CALCIUM 8.1 mg/dL (8.5-10.1); CHLORIDE 111 mmol/L (98-107); CO2 27 mmol/L (21-32); CREATININE 1.1 mg/dL (0.55-1.3); GLUCOSE,RANDOM 92 mg/dL (74-106); LIPASE 137 U/L (73-393); SGOT/AST 16 U/L (15-37); SGPT/ALT 23 U/L (13-61); SODIUM 143 mmol/L (136-145); TOT PROT 6.5 g/dl (6.4-8.2)
[2018-07-01 18:59] VITALS: BP 123/79; PULSE 78; TEMP 98.6
== END 2018-07-01 20:05 | disposition home or self-care (01) ==
LOC: JER 12:09
PROC: 3E033GC Introduction of Other Therapeutic Substance into Peripheral Vein, Percutaneous Approach (ICD-10-PCS; principal; 2018-07-01)
PROC: 3E033NZ Introduction of Analgesics, Hypnotics, Sedatives into Peripheral Vein, Percutaneous Approach (ICD-10-PCS; 2018-07-01)
PROC: BW41ZZZ Ultrasonography of Abdomen and Pelvis (ICD-10-PCS; 2018-07-01)
DX: K59.00 Constipation, unspecified (principal); D72.829 Elevated white blood cell count, unspecified
CPT/HCPCS: 36415; 74019-TC-FY; 74177-TC; 76770; 80053; 81003; 83690; 85025; 87086; 96365; 96375; 99282-25; J0131

== ENCOUNTER 2018-07-13 23:35 | Inpatient (IN) | payer OTHER ==
--- NOTE | 2018-07-14 00:03 | PDOC ---
History of Present Illness - General Chief Complaint: Nausea/Vomiting Stated Complaint: NAUSEA/VOMITING Time Seen by Provider: 07/14/18 00:02 Past History - Past Medical History Allergies/Adverse Reactions: Allergies Allergy/AdvReac Type Severity Reaction Status Date / Time No Known Drug Allergies Allergy Verified 07/13/18 23:50 PINEAPPLE Allergy Mild Hives Uncoded 07/13/18 23:50 Home Medications: Ambulatory Orders Docusate Liquid [Colace Liquid -] 50 mg PO TID PRN #473 ml 07/01/18 Sennosides [Senna Laxative] 8.6 mg PO DAILY PRN #5 tablet 07/01/18 Anemia: No Asthma: No Cancer: No Cardiac Disorders: No CVA: No COPD: No CHF: No Dementia: No Diabetes: No GI Disorders: No Disorders: No HTN: No Hypercholesterolemia: No Liver Disease: No Seizures: No Thyroid Disease: No - Surgical History Abdominal Surgery: No Appendectomy: No Cardiac Surgery: No Cholecystectomy: No Lung Surgery: No Neurologic Surgery: No Orthopedic Surgery: No - Suicide/Smoking/Psychosocial Hx Smoking History: Never smoked Have you smoked in the past 12 months: No Information on smoking cessation initiated: No Hx Alcohol Use: No Drug/Substance Use Hx: No Substance Use Type: Alcohol Hx Substance Use Treatment: No *Physical Exam - Vital Signs Last Vital Signs Temp Pulse Resp BP Pulse Ox 97.9 F 90 20 149/85 98 07/13/18 23:50 07/13/18 23:50 07/13/18 23:50 07/13/18 23:50 07/13/18 23:50
[2018-07-14] MEDS ORDERED: ONDANSETRON 4 MG/2 ML VIAL IVPUSH ONE (00:05)
[2018-07-14] MEDS ORDERED: SODIUM CHLORIDE 0.9% 500 ML INFUS.BAG IV ONE ×2 (00:05→00:25)
--- NOTE | 2018-07-14 00:06 | PDOC ---
History of Present Illness - General Chief Complaint: Nausea/Vomiting Stated Complaint: NAUSEA/VOMITING Time Seen by Provider: 07/14/18 00:02 - History of Present Illness Initial Comments: 48 year old male with chronic constipation presenting with 3 days of abdominal pain and one day of nausea/ vomiting. Patient states that he has been taking Miralax daily per Dr. Jain's instruction but has not had any relief of his symptoms. He had a presentation to our ED two weeks prior with similar symptoms and CT abdomen demonstrated enteritis but unclear if he was antibiosed as he did not have any in his ambulatory records. Today he has been nauseous and vomiting since the early AM. He denies any fevers, chills, or other symptoms. He has an appointment with Dr. Jain for next Monday. 07/14/18 00:06 Past History - Past Medical History Allergies/Adverse Reactions: Allergies Allergy/AdvReac Type Severity Reaction Status Date / Time No Known Drug Allergies Allergy Verified 07/13/18 23:50 PINEAPPLE Allergy Mild Hives Uncoded 07/13/18 23:50 Home Medications: Ambulatory Orders Docusate Liquid [Colace Liquid -] 50 mg PO TID PRN #473 ml 07/01/18 Sennosides [Senna Laxative] 8.6 mg PO DAILY PRN #5 tablet 07/01/18 Anemia: No Asthma: No Cancer: No Cardiac Disorders: No CVA: No COPD: No CHF: No Dementia: No Diabetes: No GI Disorders: No Disorders: No HTN: No Hypercholesterolemia: No Liver Disease: No Seizures: No Thyroid Disease: No - Surgical History Abdominal Surgery: No Appendectomy: No Cardiac Surgery: No Cholecystectomy: No Lung Surgery: No Neurologic Surgery: No Orthopedic Surgery: No - Suicide/Smoking/Psychosocial Hx Smoking History: Never smoked Have you smoked in the past 12 months: No Information on smoking cessation initiated: No Hx Alcohol Use: No Drug/Substance Use Hx: No Substance Use Type: Alcohol Hx Substance Use Treatment: No Review of Systems - Review of Systems Constitutional: Yes: Loss of Appetite. No: Chills, Diaphoresis, Fever, Malaise HEENTM: No: Eye Pain, Blurred Vision, Tearing Respiratory: No: Cough, Orthopnea, Shortness of Breath Cardiac (ROS): No: Chest Pain, Edema, Irregular Heart Rate ABD/GI: Yes: Constipated, Nausea, Vomiting. No: Diarrhea, Tarry Stools : No: Burning, Dysuria, Discharge Musculoskeletal: No: Back Pain, Joint Pain, Joint Swelling Integumentary: No: Lumps, Pallor, Pruritus, Rash Neurological: No: Headache, Numbness, Paresthesia Psychiatric: No: Anxiety, Depression, Frequent Crying Hematologic/Lymphatic: No: Anemia, Blood Clots, Easy Bleeding *Physical Exam - Vital Signs Last Vital Signs Temp Pulse Resp BP Pulse Ox 97.9 F 90 20 149/85 98 07/13/18 23:50 07/13/18 23:50 07/13/18 23:50 07/13/18 23:50 07/13/18 23:50 - Physical Exam General Appearance: Yes: Nourished, Appropriately Dressed. No: Apparent Distress HEENT: positive: EOMI, FABIOLA, Normal ENT Inspection, Normal Voice Neck: positive: Trachea midline, Normal Thyroid, Supple. negative: Tender, Rigid Respiratory/Chest: positive: Lungs Clear, Normal Breath Sounds. negative: Chest Tender, Respiratory Distress, Accessory Muscle Use Cardiovascular: positive: Regular Rhythm, Regular Rate Gastrointestinal/Abdominal: positive: Normal Bowel Sounds, Tender (mild lower abdominal tenderness), Flat, Soft Musculoskeletal: positive: Normal Inspection. negative: CVA Tenderness, Decreased Range of Motion Extremity: positive: Normal Capillary Refill, Normal Inspection, Normal Range of Motion. negative: Tender Integumentary: positive: Normal Color, Dry, Warm Neurologic: positive: Fully Oriented, Alert, Normal Mood/Affect, Normal Response , Motor Strength 5/5 ED Treatment Course - LABORATORY CBC & Chemistry Diagram: 07/14/18 01:25 07/14/18 01:25 Medical Decision Making - Medical Decision Making 48 year old male with no PMH presenting with 3 months of constipation that acutely worsened over the last three days. He has an appointment with Dr. Jain on Monday. It appears that the previous presentation in our ED resulted in a CT abdomen with IV con demonstraitng enteritis but no antibiotics seemed to have been prescribed. His WBC was levated then and elevatd today to 15. Given Zofran, IV NS, Flagyl, and levaquin. Admitted to medicine. We spoke to Dr. Jain as well and he will be happy to see the patient tomorrow as an inpatient. 07/14/18 04:22 *DC/Admit/Observation/Transfer Diagnosis at time of Disposition: Enteritis Abdominal pain Qualifiers: Abdominal location: lower abdomen, unspecified Qualified Code(s): R10.30 - Lower abdominal pain, unspecified - Discharge Dispostion Condition at time of disposition: Stable Decision to Admit order: Yes - Referrals - Patient Instructions - Post Discharge Activity
[2018-07-14] MEDS ORDERED: ONDANSETRON 4 MG/2 ML VIAL ONE (00:29)
--- NOTE | 2018-07-14 00:40 | PDOC ---
Attending Attestation - Resident Resident Name: Jhoan Chisholm - ED Attending Attestation I have performed the following: I have examined & evaluated the patient, The case was reviewed & discussed with the resident, I agree w/resident's findings & plan - HPI HPI: 07/14/18 00:59 Pt came to the ER 2 weeks ago and had imaging studies that revealed enteritis/ colitis. He was never treated with abx; rather with senna. We will likely treat with levaquin and flagyl today. - Physicial Exam PE: 07/14/18 01:00 Agree with resident exam - Medical Decision Making 07/14/18 01:04 Pt is nauseous and vomiting and cant tolerate PO. He has an enteritis, and a WBC of 15 and we will give IV abx and bring him to the ER.
[2018-07-14 00:56] LABS: BASO % 0.2 % (0-2.0); EOS % 0.5 % (0-4.5); HEMOGLOBIN 14.8 GM/dL (11.7-16.9); LYMPH % 7.5 % (8-40); MCH 27.3 pg (25.7-33.7); MCHC 32.2 g/dl (32.0-35.9); MEAN CELL VOLUME 84.9 fl (80-96); MEAN PLT VOLUME 7.7 fl (7.5-11.1); MONO % 8.6 % (3.8-10.2); NEUT % 83.2 % (42.8-82.8); PLATELET COUNT 344 K/MM3 (134-434); RBC 5.42 M/mm3 (4.00-5.60); RDW 13.4 % (11.9-15.9)
[2018-07-14 01:43] LABS: BASO % 0.1 % (0-2.0); EOS % 0.4 % (0-4.5); HEMATOCRIT 44.7 % (35.4-49); HEMOGLOBIN 14.3 GM/dL (11.7-16.9); LYMPH % 4.7 % (8-40); MCH 27.1 pg (25.7-33.7); MCHC 31.9 g/dl (32.0-35.9); MEAN CELL VOLUME 85.1 fl (80-96); MEAN PLT VOLUME 7.7 fl (7.5-11.1); MONO % 10.2 % (3.8-10.2); NEUT % 84.6 % (42.8-82.8); PLATELET COUNT 325 K/MM3 (134-434); RBC 5.26 M/mm3 (4.00-5.60); WHITE BLOOD COUNT 14.7 K/mm3 (4.0-10.0)
[2018-07-14 02:13] LABS: ALBUMIN 3.7 g/dl (3.4-5.0); ALK PHOS 87 U/L (45-117); AMYLASE 46 U/L (25-115); ANION GAP 6 MMOL/L (8-16); BILIRUBIN,TOTAL 0.4 mg/dL (0.2-1); BLOOD UREA NITROGEN 19 mg/dL (7-18); CALCIUM 8.6 mg/dL (8.5-10.1); CHLORIDE 106 mmol/L (98-107); CO2 29 mmol/L (21-32); GLUCOSE,RANDOM 159 mg/dL (74-106); LIPASE 105 U/L (73-393); PHOSPHOROUS 3.5 mg/dL (2.5-4.9); POTASSIUM 3.8 mmol/L (3.5-5.1); SGOT/AST 25 U/L (15-37); SGPT/ALT 50 U/L (13-61); SODIUM 141 mmol/L (136-145); TOT PROT 6.9 g/dl (6.4-8.2)
[2018-07-14 04:02] VITALS: BMI 21.2
--- NOTE | 2018-07-14 04:28 | PN ---
Teaching Attending Note Name of Resident: Diana Reyes ATTENDING PHYSICIAN STATEMENT I saw and evaluated the patient. I reviewed the resident's note and discussed the case with the resident. I agree with the resident's findings and plan as documented. SUBJECTIVE: Patient is a 48 year old man with history of boderline DM, appendectomy, recurrent abdominal pain and chronic constipation present with 3 days of abdominal pain and one day of nausea/ vomiting. Patient states that he has been taking Miralax daily per Dr. Jain's instruction but has not had any relief of his symptoms. He had a presentation to our ER on 07/01/2018 with similar symptoms and CT abdomen demonstrated enteritis but unclear if he was infectious or inflammatory. Today he has been nauseous and vomiting since the early AM. No vomiting since he arrived the ER and the pain has improved. Denies drug use or alcohol abuse. No FH of GI disorder. He denies any fevers, chills, or dysuria. 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 He has an appointment with Dr. Jain for next Monday. OBJECTIVE: Alert Vital Signs Period Temp Pulse Resp BP Sys/Deutsch Pulse Ox Last 24 Hr 97.9 F-98 F 76-90 18-20 107-149/71-85 98-99 HEENT: No Jaundice, eye redness or discharge, PERRLA, EOMI. Normocephalic, atraumatic. External ears are normal and hearing is grossly intact. No nasal discharge. Neck: Supple, nontender. No palpable adenopathy or thyromegaly. No JVD Chest: Good effort. Clear to auscultation and percussion. Heart: Regular. No S3, rub or murmur Abdomen: Not distended, soft, nontender and no HSM. No rebound or guarding. Normoactive bowel sounds. Ext: Peripheral pulses intact. No leg edema. Skin: Warm and dry. No petechiae, rash or ecchymosis. Neuro: Alert. Oriented x3. CN 2-12 grossly intact. Sensation grossly intact in all four extremities and DTR are symmetric. Home Medications Medication Instructions Recorded Docusate Liquid [Colace Liquid -] 50 mg PO TID PRN #473 ml 07/01/18 Sennosides [Senna Laxative] 8.6 mg PO DAILY PRN #5 tablet 07/01/18 Abnormal Lab Results 07/14/18 07/14/18 07/14/18 00:41 01:25 01:25 WBC 15.0 H 14.7 H MCHC 31.9 L Absolute Neuts (auto) 12.5 H 12.5 H Neutrophils % 83.2 H D 84.6 H Lymphocytes % 7.5 L D 4.7 L D Anion Gap 6 L BUN 19 H Random Glucose 159 H ASSESSMENT AND PLAN: 1. Abdominal pain - Likely due to enteritis. With the emergence of leukocytosis , will treat with IV Cipro and Flagyl. Get EKG before Zofran; give IV NS and check HbA1c. Had CT on 07/01/18. Get GI consult. 2. DVT prophylaxis - Lovenox 40 mg SQ q 24 hours. 3. Advance directives - Full code
--- NOTE | 2018-07-14 06:12 | HP ---
CHIEF COMPLAINT: constipation x 3 days PCP: none HISTORY OF PRESENT ILLNESS: 48 y/o M with hx DM, appendectomy, recurrent abdominal pain, and chronic constipation, who presented to the ED c/o worsening constipation over the past three days. As per pt, he has been taking Miralax as per his GI, Dr. Jain's instruction, however is still without relief. Pt was seen in [facility] ED two weeks prior (07/01) and underwent a CTAP which revealed enteritis. He was seen in ED Fast track. Today, pt also c/o nausea, with multiple episodes of NBNB emesis. He denies LOVELACE, fever, chills, SOB, or changes in urinary function. ER course was notable for: (1) flagyl (2) levaquin (3) zofran (4) NS Recent Travel: denies PAST MEDICAL HISTORY: as above PAST SURGICAL HISTORY: appendectomy Social History: works as a business continuity specialist in [place] Smoking: denies Alcohol: denies Drugs: denies Family History: denies Allergies No Known Drug Allergies Allergy (Verified 07/13/18 23:50) PINEAPPLE Allergy (Mild, Uncoded 07/13/18 23:50) Hives HOME MEDICATIONS: Home Medications Medication Instructions Recorded Docusate Liquid [Colace Liquid -] 50 mg PO TID PRN #473 ml 07/01/18 Sennosides [Senna Laxative] 8.6 mg PO DAILY PRN #5 tablet 07/01/18 REVIEW OF SYSTEMS CONSTITUTIONAL: Absent: fever, chills, diaphoresis, generalized weakness, malaise, loss of appetite, weight change HEENT: Absent: rhinorrhea, nasal congestion, throat pain, throat swelling, difficulty swallowing, mouth swelling, ear pain, eye pain, visual changes CARDIOVASCULAR: Absent: chest pain, syncope, palpitations, irregular heart rate, lightheadedness , peripheral edema RESPIRATORY: Absent: cough, shortness of breath, dyspnea with exertion, orthopnea, wheezing, stridor, hemoptysis GASTROINTESTINAL:+abdominal pain, nausea, vomiting, constipation Absent: abdominal distension, nausea, diarrhea, melena, hematochezia GENITOURINARY: Absent: dysuria, frequency, urgency, hesitancy, hematuria, flank pain, genital pain MUSCULOSKELETAL: Absent: myalgia, arthralgia, joint swelling, back pain, neck pain SKIN: Absent: rash, itching, pallor HEMATOLOGIC/IMMUNOLOGIC: Absent: easy bleeding, easy bruising, lymphadenopathy, frequent infections ENDOCRINE: Absent: unexplained weight gain, unexplained weight loss, heat intolerance, cold intolerance NEUROLOGIC: Absent: headache, focal weakness or paresthesias, dizziness, unsteady gait, seizure, mental status changes, bladder or bowel incontinence PSYCHIATRIC: Absent: anxiety, depression, suicidal or homicidal ideation, hallucinations. PHYSICAL EXAMINATION Vital Signs 07/14/18 04:08 Temperature 98 F Pulse Rate 76 Pulse Rate [ Left Radial] Respiratory 18 Rate Blood Pressure 130/73 Blood Pressure [Left Arm] O2 Sat by Pulse Oximetry (%) GENERAL: Awake, alert, in no acute distress. HEAD: Normal with no signs of trauma. EYES: Pupils equal, round and reactive to light, extraocular movements intact, sclera anicteric, conjunctiva clear. EARS, NOSE, THROAT: Ears normal, nares patent. NECK: Normal range of motion, supple LUNGS: Breath sounds equal, clear to auscultation bilaterally. HEART: Regular rate and rhythm, normal S1 and S2 without murmur, rub or gallop. ABDOMEN: Soft, nontender, not distended, normoactive bowel sounds, no guarding, no rebound, no masses. MUSCULOSKELETAL: Normal range of motion at all joints. LOWER EXTREMITIES: No calf tenderness. No peripheral edema. NEUROLOGICAL: Cranial nerves II-XII intact. Laboratory Results 07/14/18 07/14/18 00:41 01:25 WBC 15.0 H RBC 5.42 Hgb 14.8 Hct 46.0 MCV 84.9 MCH 27.3 MCHC 32.2 RDW 13.4 Plt Count 344 MPV 7.7 Absolute Neuts (auto) 12.5 H Neutrophils % 83.2 H D Lymphocytes % 7.5 L D Monocytes % 8.6 Eosinophils % 0.5 Basophils % 0.2 Nucleated RBC % 0 Sodium 141 Potassium 3.8 Chloride 106 Carbon Dioxide 29 Anion Gap 6 L BUN 19 H Creatinine 1.0 Creat Clearance w eGFR > 60 Random Glucose 159 H Calcium 8.6 Phosphorus 3.5 Magnesium 2.0 Total Bilirubin 0.4 AST 25 ALT 50 Alkaline Phosphatase 87 Creatine Kinase 137 Troponin I < 0.02 Total Protein 6.9 Albumin 3.7 Total Amylase 46 Lipase 105 07/14/18 01:25 WBC 14.7 H RBC 5.26 Hgb 14.3 Hct 44.7 MCV 85.1 MCH 27.1 MCHC 31.9 L RDW 13.0 Plt Count 325 MPV 7.7 Absolute Neuts (auto) 12.5 H Neutrophils % 84.6 H Lymphocytes % 4.7 L D Monocytes % 10.2 Eosinophils % 0.4 Basophils % 0.1 Nucleated RBC % 0 ASSESSMENT/PLAN: 48 y/o M with hx DM, appendectomy, recurrent abdominal pain, and chronic constipation, who presented to the ED c/o worsening constipation over the past three days. #Abdominal pain likely 2/2 enteritis recently diagnosed 2 weeks prior with enteritis, currently with white count will tx with Cipro, Flagyl, IV NS F/u EKG, check Qtc before zofran GI consult: Dr. Jain #DM -F/u Hb A1c -ISS ACHS -BGM q4h #F/E/N IV NS 100 cc/hr continue to follow lytes NPO #PPX DVT: Lovenox 40mg SQ #Dispo med-surg Visit type - Emergency Visit Emergency Visit: Yes ED Registration Date: 07/14/18 Care time: The patient presented to the Emergency Department on the above date and was hospitalized for further evaluation of their emergent condition. - New Patient This patient is new to me today: Yes Date on this admission: 07/14/18 - Critical Care Critical Care patient: No
[2018-07-14] MEDS: INSULIN SLIDING SCALE (NOVOLOG) 1 VIAL SQ SCH ×4 (06:37→21:27)
[2018-07-14] MEDS: SODIUM CHLORIDE 1,000 ML IV SCH ×2 (06:37→17:26)
[2018-07-14 09:39] LABS: BASO % 0.1 % (0-2.0); EOS % 0.7 % (0-4.5); HEMOGLOBIN 12.7 GM/dL (11.7-16.9); LYMPH % 13.6 % (8-40); MCHC 31.8 g/dl (32.0-35.9); MEAN CELL VOLUME 84.9 fl (80-96); MEAN PLT VOLUME 7.6 fl (7.5-11.1); MONO % 8.9 % (3.8-10.2); NEUT % 76.7 % (42.8-82.8); PLATELET COUNT 278 K/MM3 (134-434); RBC 4.71 M/mm3 (4.00-5.60); RDW 13.1 % (11.9-15.9); WHITE BLOOD COUNT 9.6 K/mm3 (4.0-10.0)
[2018-07-14 10:03] LABS: ALBUMIN 3.2 g/dl (3.4-5.0); ALK PHOS 71 U/L (45-117); ANION GAP 7 MMOL/L (8-16); BILIRUBIN,TOTAL 0.9 mg/dL (0.2-1); BLOOD UREA NITROGEN 18 mg/dL (7-18); CALCIUM 8.3 mg/dL (8.5-10.1); CHLORIDE 110 mmol/L (98-107); CO2 26 mmol/L (21-32); CREATININE 1.1 mg/dL (0.55-1.3); GLUCOSE,RANDOM 105 mg/dL (74-106); PHOSPHOROUS 3.1 mg/dL (2.5-4.9); SGOT/AST 19 U/L (15-37); SGPT/ALT 37 U/L (13-61); SODIUM 143 mmol/L (136-145); TOT PROT 5.9 g/dl (6.4-8.2)
--- NOTE | 2018-07-14 10:17 | HOSP ---
Subjective - Review of Symptoms Events since last encounter: Patient is comfortable with no acute distress. Vital Signs Temperature 98 F 07/14/18 04:08 Pulse Rate 76 07/14/18 04:08 Respiratory Rate 18 07/14/18 04:08 Blood Pressure 130/73 07/14/18 04:08 O2 Sat by Pulse Oximetry (%) 99 07/14/18 02:37 GENERAL: Awake, alert, in no acute distress. HEAD: Normal with no signs of trauma. EYES: Pupils equal, round and reactive to light, extraocular movements intact, sclera anicteric, conjunctiva clear. EARS, NOSE, THROAT: Ears normal. MMM NECK: Normal range of motion, supple LUNGS: Breath sounds equal, clear to auscultation bilaterally. HEART: Regular rate and rhythm, normal S1 and S2 without murmur, rub or gallop. ABDOMEN: Soft, nontender, not distended, normoactive bowel sounds, no guarding, no rebound, no masses. MUSCULOSKELETAL: Normal range of motion at all joints. EXTREMITIES: No calf tenderness. No peripheral edema. NEUROLOGICAL: Cranial nerves II-XII intact. CBCD WBC 9.6 K/mm3 (4.0-10.0) 07/14/18 09:00 RBC 4.71 M/mm3 (4.00-5.60) 07/14/18 09:00 Hgb 12.7 GM/dL (11.7-16.9) 07/14/18 09:00 Hct 40.0 % (35.4-49) 07/14/18 09:00 MCV 84.9 fl (80-96) 07/14/18 09:00 MCHC 31.8 g/dl (32.0-35.9) L 07/14/18 09:00 RDW 13.1 % (11.9-15.9) 07/14/18 09:00 Plt Count 278 K/MM3 (134-434) 07/14/18 09:00 MPV 7.6 fl (7.5-11.1) 07/14/18 09:00 CMP Sodium 143 mmol/L (136-145) 07/14/18 09:00 Potassium 4.0 mmol/L (3.5-5.1) 07/14/18 09:00 Chloride 110 mmol/L (98-107) H 07/14/18 09:00 Carbon Dioxide 26 mmol/L (21-32) 07/14/18 09:00 Anion Gap 7 MMOL/L (8-16) L 07/14/18 09:00 BUN 18 mg/dL (7-18) 07/14/18 09:00 Creatinine 1.1 mg/dL (0.55-1.3) 07/14/18 09:00 Creat Clearance w eGFR > 60 (>60) 07/14/18 09:00 Random Glucose 105 mg/dL (74-106) 07/14/18 09:00 Calcium 8.3 mg/dL (8.5-10.1) L 07/14/18 09:00 Total Bilirubin 0.9 mg/dL (0.2-1) 07/14/18 09:00 AST 19 U/L (15-37) 07/14/18 09:00 ALT 37 U/L (13-61) 07/14/18 09:00 Alkaline Phosphatase 71 U/L (45-117) 07/14/18 09:00 Total Protein 5.9 g/dl (6.4-8.2) L 07/14/18 09:00 Albumin 3.2 g/dl (3.4-5.0) L 07/14/18 09:00 CARDIAC ENZYMES Creatine Kinase 137 IU/L (26-308) 07/14/18 01:25 Troponin I < 0.02 ng/ml (0.00-0.05) 07/14/18 01:25 Current Medications Generic Name Dose Route Start Last Admin Trade Name Freq PRN Reason Stop Dose Admin Enoxaparin Sodium 40 mg 07/14/18 10:00 Lovenox - SQ DAILY J[facility] Metronidazole 500 mg in 100 mls @ 100 mls/hr 07/14/18 10:00 Flagyl 500mg Premixed Ivpb - IVPB Q8H-IV [facility] Ciprofloxacin/Dextrose 400 mg in 200 mls @ 200 mls/hr 07/15/18 01:00 Cipro 400 Mg Premix Ivpb (Restricted To Id) IVPB BID JACKSON Sodium Chloride 1,000 mls @ 100 mls/hr 07/14/18 06:15 07/14/18 06:37 Normal Saline - IV 100 mls/hr ASDIR JACKSON Administration Insulin Aspart 1 vial 07/14/18 07:00 07/14/18 06:37 Novolog Vial Sliding Scale - SQ Not Given ACHS [facility] Protocol Home Medications Medication Instructions Recorded Docusate Liquid [Colace Liquid -] 50 mg PO TID PRN #473 ml 07/01/18 Sennosides [Senna Laxative] 8.6 mg PO DAILY PRN #5 tablet 07/01/18 A/P: Patient is a 48 y/o M with hx DM, appendectomy, recurrent abdominal pain, and chronic constipation, who presented to the ED c/o worsening constipation over the past three days. #Acute abdominal pain due to enteritis on IV Cipro, Flagyl, IV NS continue, GI consult: Dr. Jain #T2DM ISS ACHS, BGM q4h, hemoglobin A1c 6.4, pre-diabetic range . discussed with the patient diet and monitor the blood sugar. DVT PPX: Lovenox 40mg SQ Physical Examination Vital Signs: Vital Signs Temperature 98 F 07/14/18 04:08 Pulse Rate 76 07/14/18 04:08 Respiratory Rate 18 07/14/18 04:08 Blood Pressure 130/73 07/14/18 04:08 O2 Sat by Pulse Oximetry (%) 99 07/14/18 02:37 Labs: CBC, BMP 07/14/18 09:00 07/14/18 09:00
[2018-07-14] MEDS: ENOXAPARIN NA (PORCINE) 40 MG/0.4 ML DISP.SYRIN SQ SCH (10:53)
--- NOTE | 2018-07-14 11:54 | EKG ---
Test Reason : Blood Pressure : / mmHG Vent. Rate : 091 BPM Atrial Rate : 091 BPM P-R Int : 150 ms QRS Dur : 066 ms QT Int : 368 ms P-R-T Axes : 067 -51 027 degrees QTc Int : 452 ms NORMAL SINUS RHYTHM LEFT AXIS DEVIATION ABNORMAL ECG WHEN COMPARED WITH ECG OF 07-NOV-2016 03:11, T WAVE AMPLITUDE HAS DECREASED IN ANTERIOR LEADS Confirmed by CASSIE BATRES MD ([id number]) on 07/14/2018 11:54:19 AM Referred By: Confirmed By:CASSIE BATRES MD
[2018-07-14] MEDS ORDERED: GLYCERIN 1 RECTAL SUPPOSITORY, ADULT RC ONE (15:26)
[2018-07-14] MEDS: POLYETHYLENE GLYCOL 3350 119 GM BTL PO SCH (21:26)
[2018-07-15] MEDS ORDERED: CIPROFLOXACIN 400 MG/D5W 400 MG/200 ML IVPB IVPB SCH (01:00)
[2018-07-15] MEDS: INSULIN SLIDING SCALE (NOVOLOG) 1 VIAL SQ SCH ×4 (06:05→21:33)
[2018-07-15] MEDS: SODIUM CHLORIDE 1,000 ML IV SCH (07:05)
[2018-07-15] MEDS: ENOXAPARIN NA (PORCINE) 40 MG/0.4 ML DISP.SYRIN SQ SCH (10:29)
[2018-07-15] MEDS: POLYETHYLENE GLYCOL 3350 119 GM BTL PO SCH ×2 (10:30→21:32)
[2018-07-15] MEDS ORDERED: SODIUM PHOSPHATE/NA BIPHOS 133 ML ENEMA RC ONE ×2 (11:45→11:50)
[2018-07-15] MEDS ORDERED: MAGNESIUM CITRATE 300 ML BOTTLE PO ONE (11:45)
--- NOTE | 2018-07-15 13:51 | PN ---
Physical Exam: SUBJECTIVE: Patient seen and examined still has not had a BM while in hospital. last BM, was last Monday. s/p stool softenerm mirolax and enema. No fever, chills,n,v,abdominal pain. OBJECTIVE: Vital Signs Period Temp Pulse Resp BP Sys/Deutsch Pulse Ox Last 24 Hr 97.8 F-98.4 F 62-69 18-20 111-136/67-87 99 GENERAL: The patient is awake, alert, and fully oriented, in no acute distress. HEAD: Normal with no signs of trauma. LUNGS: Breath sounds equal, clear to auscultation bilaterally, no wheezes, no crackles, no accessory muscle use. HEART: Regular rate and rhythm, S1, S2 without murmur, rub or gallop. ABDOMEN: Soft, nontender, nondistended, normoactive bowel sounds, no guarding, no rebound, no hepatosplenomegaly, no masses. EXTREMITIES: 2+ pulses, warm, well-perfused, no edema. NEUROLOGICAL: Cranial nerves II through XII grossly intact. Normal speech, gait not observed. PSYCH: Normal mood, normal affect. SKIN: Warm, dry, normal turgor, no rashes or lesions noted Laboratory Results - last 24 hr 07/14/18 07/14/18 07/15/18 17:17 21:25 06:04 POC Glucometer 76 100 90 Active Medications Generic Name Dose Route Start Last Admin Trade Name Freq PRN Reason Stop Dose Admin Enoxaparin Sodium 40 mg 07/14/18 10:00 07/15/18 10:29 Lovenox - SQ 40 mg DAILY JACKSON Administration Sodium Chloride 1,000 mls @ 100 mls/hr 07/14/18 06:15 07/15/18 07:05 Normal Saline - IV 100 mls/hr ASDIR JACKSON Administration Levofloxacin 500 mg in 100 mls @ 100 mls/hr 07/14/18 19:15 07/15/18 10:29 Levaquin 500 Mg Premixed Ivpb - IVPB 100 mls/hr DAILY [facility] Administration Insulin Aspart 1 vial 07/14/18 07:00 07/15/18 13:07 Novolog Vial Sliding Scale - SQ Not Given ACHS [facility] Protocol Metronidazole 250 mg 07/15/18 14:00 Flagyl - PO 07/29/18 12:59 TID JACKSON Polyethylene Glycol 34 gm 07/15/18 11:51 Miralax (For Daily Use) - PO BID [facility] ASSESSMENT/PLAN: This is a 48 year old male with recent diagnoses enteritis, fluid filled small bowel loops and retained stool, seen on CT abdomen done on 07/01/18.Patient was sent home on mirolax and senna. He now presented with same pain, leukocytosis and continued constipation. #abdominal pain secondary to inflammatory vs infectious process; constipation -continue IV flagy/levo -f/u abdominal/pelvis CT -contine bowel regimen -tolerating full liquid diet -appreciate GI #DM: -insulin ss -bgm achs VTE ppl: lovenox Disposition: pending imaging and GI eval Visit type - Emergency Visit Emergency Visit: Yes ED Registration Date: 07/14/18 Care time: The patient presented to the Emergency Department on the above date and was hospitalized for further evaluation of their emergent condition. - New Patient This patient is new to me today: Yes Date on this admission: 07/15/18 - Critical Care Critical Care patient: No
[2018-07-15] MEDS: metroNIDAZOLE 250 MG TABLET PO SCH ×2 (16:55→21:33)
--- NOTE | 2018-07-15 16:58 | CON.GI ---
Consult Consult Specialty:: GI Reason for Consultation:: abdominal pain - History of Present Illness History of Present Illness: 48 y/o male has chronic lower abdominal pain associated with new onset of constipation. He denies nausea, vomiting, weight loss, melena and rectal bleeding. He was seen in the ER last Jun 2018. The ct revealed thickening of the small bowel. He was seen at 12 pm today. He continued to have similar symptoms. He was given laxatives overnight which provided no relief of his symptoms. - Past Medical History Endocrine: Yes: Other (pre-diabetes) - Past Surgical History Past Surgical History: Yes: None - Alcohol/Substance Use Hx Alcohol Use: No - Smoking History Smoking history: Never smoked Have you smoked in the past 12 months: No - Social History History of Recent Travel: No Home Medications - Allergies Allergies/Adverse Reactions: Allergies Allergy/AdvReac Type Severity Reaction Status Date / Time No Known Drug Allergies Allergy Verified 07/13/18 23:50 [place] Allergy Mild Hives Uncoded 07/13/18 23:50 - Home Medications Home Medications: Ambulatory Orders Docusate Liquid [Colace Liquid -] 50 mg PO TID PRN #473 ml 07/01/18 Sennosides [Senna Laxative] 8.6 mg PO DAILY PRN #5 tablet 07/01/18 Review of Systems - Review of Systems Constitutional: denies: No Symptoms, Chills, Diaphoresis, Fever, Lethargy, Loss of Appetite, Malaise, Night Sweats, Unintentional Wgt. Loss, Weakness, Other Eyes: denies: No Symptoms, Blind Spots, Blurred Vision, Double Vision, Eye Pain , Floaters, Photophobia, Recent Change in Vision, Other HENT: denies: No Symptoms, Difficult Swallowing, Ear Discharge, Ear Pain, Epistaxis, Gingival Bleeding, Hearing Loss, Mouth Swelling, Nasal Congestion, Ocular Prosthesis, Throat Pain, Toothache, Ringing in Ears, Other Neck: denies: No Symptoms, Decreased ROM, Lumps, Pain on Movement, Stiffness, Swollen Glands, Tenderness, Other Cardiovascular: denies: No Symptoms, Chest Pain, Edema, Palpitations, Shortness of Breath, Other Gastrointestinal: reports: Abdominal Pain, Bloating, Constipation. denies: Diarrhea, Dysphagia, Melena, Nausea, Rectal Bleeding, Vomiting Physical Exam-GI Vital Signs: Vital Signs Temperature 98.7 F 07/15/18 15:06 Pulse Rate 74 07/15/18 15:06 Respiratory Rate 18 07/15/18 15:06 Blood Pressure 142/80 07/15/18 15:06 O2 Sat by Pulse Oximetry (%) 99 07/14/18 21:00 Constitutional: Yes: Well Nourished Eyes: Yes: Conjunctiva Clear HENT: Yes: Atraumatic Neck: Yes: Supple Cardiovascular: Yes: Regular Rate and Rhythm Respiratory: Yes: CTA Bilaterally Gastrointestinal Inspection: No: Distention ...Auscultate: Yes: Normoactive Bowel Sounds ...Palpate: Yes: Soft. No: Firm/Rigid, Guarding, Hepatomegaly, Mass, Pulsatile Mass, Splenomegaly, Tenderness Labs: CBC, BMP 07/14/18 09:00 07/14/18 09:00 Hepatic Panel Total Bilirubin 0.9 mg/dL (0.2-1) 07/14/18 09:00 AST 19 U/L (15-37) 07/14/18 09:00 ALT 37 U/L (13-61) 07/14/18 09:00 Alkaline Phosphatase 71 U/L (45-117) 07/14/18 09:00 Albumin 3.2 g/dl (3.4-5.0) L 07/14/18 09:00 Home Medications Medication Instructions Recorded Docusate Liquid [Colace Liquid -] 50 mg PO TID PRN #473 ml 07/01/18 Sennosides [Senna Laxative] 8.6 mg PO DAILY PRN #5 tablet 07/01/18 Problem List - Problems (1) Abnormal CT of the abdomen Code(s): R93.5 - ABN FINDINGS ON DX IMAGING OF ABD REGIONS, INC RETROPERITON (2) Abdominal pain Assessment/Plan: associated with new onset change in bowel habits r/o secondary to IBS vs malignancy R> fleet enemas and laxatives repeat ct further gi w/u including colonoscopy as an outpatient the patient was made aware to follow-up maintain on Miralax 34 grams tid as an outpatient continue Flagyl 250mg tid for 2 weeks for IBS Code(s): R10.9 - UNSPECIFIED ABDOMINAL PAIN
--- NOTE | 2018-07-15 18:09 | PN ---
Teaching Attending Note Name of Resident: Zofia Foster ATTENDING PHYSICIAN STATEMENT I saw and evaluated the patient. I reviewed the resident's note and discussed the case with the resident. I agree with the resident's findings and plan as documented. SUBJECTIVE: Patient has no new complain, feeling better. OBJECTIVE: Vital Signs Temperature 98.7 F 07/15/18 15:06 Pulse Rate 74 07/15/18 15:06 Respiratory Rate 18 07/15/18 15:06 Blood Pressure 142/80 07/15/18 15:06 O2 Sat by Pulse Oximetry (%) 99 07/14/18 21:00 GENERAL: Awake, alert, in no acute distress. HEAD: Normal with no signs of trauma. EYES: Pupils equal, round and reactive to light, extraocular movements intact. EARS, NOSE, THROAT: Ears normal. NECK: Normal range of motion, supple LUNGS: Breath sounds equal, clear to auscultation bilaterally. HEART: Regular rate and rhythm, normal S1 and S2 without murmur, rub or gallop. ABDOMEN: Soft, nontender, not distended, normoactive bowel sounds, no guarding, no rebound, no masses. MUSCULOSKELETAL: Normal range of motion at all joints. LOWER EXTREMITIES: No calf tenderness. No peripheral edema. NEUROLOGICAL: Cranial nerves II-XII intact. CBCD WBC 9.6 K/mm3 (4.0-10.0) 07/14/18 09:00 RBC 4.71 M/mm3 (4.00-5.60) 07/14/18 09:00 Hgb 12.7 GM/dL (11.7-16.9) 07/14/18 09:00 Hct 40.0 % (35.4-49) 07/14/18 09:00 MCV 84.9 fl (80-96) 07/14/18 09:00 MCHC 31.8 g/dl (32.0-35.9) L 07/14/18 09:00 RDW 13.1 % (11.9-15.9) 07/14/18 09:00 Plt Count 278 K/MM3 (134-434) 07/14/18 09:00 MPV 7.6 fl (7.5-11.1) 07/14/18 09:00 CMP Sodium 143 mmol/L (136-145) 07/14/18 09:00 Potassium 4.0 mmol/L (3.5-5.1) 07/14/18 09:00 Chloride 110 mmol/L (98-107) H 07/14/18 09:00 Carbon Dioxide 26 mmol/L (21-32) 07/14/18 09:00 Anion Gap 7 MMOL/L (8-16) L 07/14/18 09:00 BUN 18 mg/dL (7-18) 07/14/18 09:00 Creatinine 1.1 mg/dL (0.55-1.3) 07/14/18 09:00 Creat Clearance w eGFR > 60 (>60) 07/14/18 09:00 Random Glucose 105 mg/dL (74-106) 07/14/18 09:00 Calcium 8.3 mg/dL (8.5-10.1) L 07/14/18 09:00 Total Bilirubin 0.9 mg/dL (0.2-1) 07/14/18 09:00 AST 19 U/L (15-37) 07/14/18 09:00 ALT 37 U/L (13-61) 07/14/18 09:00 Alkaline Phosphatase 71 U/L (45-117) 07/14/18 09:00 Total Protein 5.9 g/dl (6.4-8.2) L 07/14/18 09:00 Albumin 3.2 g/dl (3.4-5.0) L 07/14/18 09:00 CARDIAC ENZYMES Creatine Kinase 137 IU/L (26-308) 07/14/18 01:25 Troponin I < 0.02 ng/ml (0.00-0.05) 07/14/18 01:25 Current Medications Generic Name Dose Route Start Last Admin Trade Name Freq PRN Reason Stop Dose Admin Enoxaparin Sodium 40 mg 07/14/18 10:00 07/15/18 10:29 Lovenox - SQ 40 mg DAILY JACKSON Administration Sodium Chloride 1,000 mls @ 100 mls/hr 07/14/18 06:15 07/15/18 07:05 Normal Saline - IV 100 mls/hr ASDIR J[facility]SON Administration Levofloxacin 500 mg in 100 mls @ 100 mls/hr 07/14/18 19:15 07/15/18 10:29 Levaquin 500 Mg Premixed Ivpb - IVPB 100 mls/hr DAILY J[facility] Administration Insulin Aspart 1 vial 07/14/18 07:00 07/15/18 17:00 Novolog Vial Sliding Scale - SQ Not Given ACHS [facility] Protocol Metronidazole 250 mg 07/15/18 14:00 07/15/18 16:55 Flagyl - PO 07/29/18 12:59 250 mg TID JACKSON Administration Polyethylene Glycol 34 gm 07/15/18 11:51 Miralax (For Daily Use) - PO BID [facility] Home Medications Medication Instructions Recorded Docusate Liquid [Colace Liquid -] 50 mg PO TID PRN #473 ml 07/01/18 Sennosides [Senna Laxative] 8.6 mg PO DAILY PRN #5 tablet 07/01/18 Clinical information persistent abdominal pain, abnormal CT Multiplanar imaging was performed utilizing intravenous as well as oral contrast. In comparison to a prior CT study of 07/01/2018 there is no longer visualization of possible mild wall thickening involving several distal small bowel loops. As on the previous exam the terminal ileum demonstrates no definite CT pathology. No evidence of pneumoperitoneum, abscess, free intraperitoneal fluid or bowel obstruction. There is no definite CT evidence of acute diverticulitis, colitis or appendicitis. The liver, spleen, pancreas, gallbladder, adrenal glands and kidneys demonstrate no discrete abnormality. No aortic aneurysm is seen. There is no obvious lymphadenopathy. Prostate enlargement which is probably mild. Very small umbilical hernia containing fat only. The visualized osseous structures demonstrate no gross acute pathology. Impression: No CT findings of acute pathology are identified. In comparison to a previous exam of 07/01/2018 there is no longer visualization of possible small bowel wall thickening as noted above. Reported By: Yousuf Mir MD 07/16/18 [id number] ASSESSMENT AND PLAN: Patient is a 48 y/o M with hx DM, appendectomy, recurrent abdominal pain, and chronic constipation, who presented to the ED c/o worsening constipation over the past three days. #Acute abdominal pain due to enteritis, continue IV Cipro, Flagyl, Repeat CT , WNL, continue IV NS continue, GI consult: Dr. Jain appreciated #New onset Constipation with new onset change in bowel habits r/o secondary to IBS vs malignancy: ordered enemas. laxative, Miralax, follow with GI upon discharge for colonoscopy , patient was made aware of that. As per GI to maintain on Miralax 34 grams tid as an outpatient. continue Flagyl 250mg tid for 2 weeks for IBS #T2DM ISS ACHS, BGM q4h, hemoglobin A1c 6.4, pre-diabetic range . discussed with the patient diet and monitor the blood sugar. DVT PPX: Lovenox 40mg SQ
[2018-07-16] MEDS: SODIUM CHLORIDE 1,000 ML IV SCH ×3 (00:51→15:38)
[2018-07-16] MEDS: metroNIDAZOLE 250 MG TABLET PO SCH ×2 (06:36→15:31)
[2018-07-16] MEDS: INSULIN SLIDING SCALE (NOVOLOG) 1 VIAL SQ SCH ×4 (06:36→16:49)
[2018-07-16 06:44] LABS: BASO % 0.2 % (0-2.0); EOS % 2.9 % (0-4.5); HEMATOCRIT 37.2 % (35.4-49); HEMOGLOBIN 12.7 GM/dL (11.7-16.9); LYMPH % 26.4 % (8-40); MCH 28.8 pg (25.7-33.7); MCHC 34.2 g/dl (32.0-35.9); MEAN CELL VOLUME 84.4 fl (80-96); MONO % 10.6 % (3.8-10.2); NEUT % 59.9 % (42.8-82.8); PLATELET COUNT 285 K/MM3 (134-434); RDW 13.1 % (11.9-15.9); WHITE BLOOD COUNT 7.8 K/mm3 (4.0-10.0)
[2018-07-16 07:33] LABS: ANION GAP 6 MMOL/L (8-16); BLOOD UREA NITROGEN 7 mg/dL (7-18); CALCIUM 8.4 mg/dL (8.5-10.1); CHLORIDE 108 mmol/L (98-107); CO2 28 mmol/L (21-32); CREATININE 1.1 mg/dL (0.55-1.3); GLUCOSE,RANDOM 95 mg/dL (74-106); MAGNESIUM 2.4 mg/dL (1.8-2.4); SODIUM 141 mmol/L (136-145)
[2018-07-16] MEDS: ENOXAPARIN NA (PORCINE) 40 MG/0.4 ML DISP.SYRIN SQ SCH (11:03)
[2018-07-16] MEDS: POLYETHYLENE GLYCOL 3350 119 GM BTL PO SCH (11:03)
[2018-07-16 14:17] VITALS: BP 135/87; PULSE 66; TEMP 98
--- NOTE | 2018-07-16 17:02 | PN ---
Teaching Attending Note Name of Resident: Marian Bonner ATTENDING PHYSICIAN STATEMENT I saw and evaluated the patient. I reviewed the resident's note and discussed the case with the resident. I agree with the resident's findings and plan as documented. SUBJECTIVE: Patient is feeling better with no acute distress. OBJECTIVE: Vital Signs Temperature 98 F 07/16/18 14:16 Pulse Rate 66 07/16/18 14:16 Respiratory Rate 20 07/16/18 14:16 Blood Pressure 135/87 07/16/18 14:16 O2 Sat by Pulse Oximetry (%) 98 07/15/18 21:00 GENERAL: Awake, alert, in no acute distress. HEAD: Normal with no signs of trauma. EYES: Pupils equal, round and reactive to light, extraocular movements intact, sclera anicteric, conjunctiva clear. EARS, NOSE, THROAT: Ears normal. No exudate or erythema. NECK: Normal range of motion, supple LUNGS: Breath sounds equal, clear to auscultation bilaterally. HEART: Regular rate and rhythm, normal S1 and S2 without murmur, rub or gallop. ABDOMEN: Soft, nontender, not distended, normoactive bowel sounds, no guarding, no rebound, no masses. MUSCULOSKELETAL: Normal range of motion at all joints. LOWER EXTREMITIES: No calf tenderness. No peripheral edema. NEUROLOGICAL: Cranial nerves II-XII intact. CBCD WBC 7.8 K/mm3 (4.0-10.0) 07/16/18 06:00 RBC 4.40 M/mm3 (4.00-5.60) 07/16/18 06:00 Hgb 12.7 GM/dL (11.7-16.9) 07/16/18 06:00 Hct 37.2 % (35.4-49) 07/16/18 06:00 MCV 84.4 fl (80-96) 07/16/18 06:00 MCHC 34.2 g/dl (32.0-35.9) 07/16/18 06:00 RDW 13.1 % (11.9-15.9) 07/16/18 06:00 Plt Count 285 K/MM3 (134-434) 07/16/18 06:00 MPV 8.0 fl (7.5-11.1) 07/16/18 06:00 CMP Sodium 141 mmol/L (136-145) 07/16/18 06:00 Potassium 4.0 mmol/L (3.5-5.1) 07/16/18 06:00 Chloride 108 mmol/L (98-107) H 07/16/18 06:00 Carbon Dioxide 28 mmol/L (21-32) 07/16/18 06:00 Anion Gap 6 MMOL/L (8-16) L 07/16/18 06:00 BUN 7 mg/dL (7-18) 07/16/18 06:00 Creatinine 1.1 mg/dL (0.55-1.3) 07/16/18 06:00 Creat Clearance w eGFR > 60 (>60) 07/16/18 06:00 Random Glucose 95 mg/dL (74-106) 07/16/18 06:00 Calcium 8.4 mg/dL (8.5-10.1) L 07/16/18 06:00 Total Bilirubin 0.9 mg/dL (0.2-1) 07/14/18 09:00 AST 19 U/L (15-37) 07/14/18 09:00 ALT 37 U/L (13-61) 07/14/18 09:00 Alkaline Phosphatase 71 U/L (45-117) 07/14/18 09:00 Total Protein 5.9 g/dl (6.4-8.2) L 07/14/18 09:00 Albumin 3.2 g/dl (3.4-5.0) L 07/14/18 09:00 CARDIAC ENZYMES Creatine Kinase 137 IU/L (26-308) 07/14/18 01:25 Troponin I < 0.02 ng/ml (0.00-0.05) 07/14/18 01:25 Current Medications Generic Name Dose Route Start Last Admin Trade Name Freq PRN Reason Stop Dose Admin Enoxaparin Sodium 40 mg 07/14/18 10:00 07/16/18 11:03 Lovenox - SQ Not Given DAILY [facility]SON Sodium Chloride 1,000 mls @ 100 mls/hr 07/14/18 06:15 07/16/18 15:38 Normal Saline - IV 100 mls/hr ASDIR [facility] Administration Levofloxacin 500 mg in 100 mls @ 100 mls/hr 07/14/18 19:15 07/16/18 11:03 Levaquin 500 Mg Premixed Ivpb - IVPB 100 mls/hr DAILY [facility] Administration Insulin Aspart 1 vial 07/14/18 07:00 07/16/18 16:49 Novolog Vial Sliding Scale - SQ Not Given ACHS [facility] Protocol Metronidazole 250 mg 07/15/18 14:00 07/16/18 15:31 Flagyl - PO 07/29/18 12:59 250 mg TID [facility] Administration Polyethylene Glycol 34 gm 07/15/18 11:51 07/16/18 11:03 Miralax (For Daily Use) - PO 17 grams BID [facility] Administration Home Medications Medication Instructions Recorded Docusate Liquid [Colace Liquid -] 50 mg PO TID PRN #473 ml 07/01/18 Sennosides [Senna Laxative] 8.6 mg PO DAILY PRN #5 tablet 07/01/18 Polyethylene Glycol 3350 [Miralax 34 gm PO BID #3 bottle 07/16/18 119 gm Btl -] metroNIDAZOLE [Flagyl -] 250 mg PO TID 14 Days #42 tablet 07/16/18 Clinical information persistent abdominal pain, abnormal CT Multiplanar imaging was performed utilizing intravenous as well as oral contrast. In comparison to a prior CT study of 07/01/2018 there is no longer visualization of possible mild wall thickening involving several distal small bowel loops. As on the previous exam the terminal ileum demonstrates no definite CT pathology. No evidence of pneumoperitoneum, abscess, free intraperitoneal fluid or bowel obstruction. There is no definite CT evidence of acute diverticulitis, colitis or appendicitis. The liver, spleen, pancreas, gallbladder, adrenal glands and kidneys demonstrate no discrete abnormality. No aortic aneurysm is seen. There is no obvious lymphadenopathy. Prostate enlargement which is probably mild. Very small umbilical hernia containing fat only. The visualized osseous structures demonstrate no gross acute pathology. Impression: No CT findings of acute pathology are identified. In comparison to a previous exam of 07/01/2018 there is no longer visualization of possible small bowel wall thickening as noted above. Reported By: Yousuf Mir MD 07/16/18 [id number] ASSESSMENT AND PLAN: Patient is a 48 y/o M with hx DM, appendectomy, recurrent abdominal pain, and chronic constipation, who presented to the ED c/o worsening constipation over the past three days. #Acute abdominal pain due to enteritis, On levaquin and Flagyl. per Gi patient can be discharged home today on Flagyl for 2 weeks. #New onset Constipation with new onset change in bowel habits r/o secondary to IBS vs malignancy:continue with Miralax 34gm x 2 weeks and follow with GI for colonoscopy , patient was made aware of that. As per GI to maintain on Miralax 34 grams tid as an outpatient. continue Flagyl 250mg tid for 2 weeks for possible IBS #Pre-diabetic hemoglobin A1c 6.4,discussed with the patient diet and monitor the blood sugar as an outpatient and follow up with PMD. will discharge patient home on Flagyl and Miralax.
--- NOTE | 2018-07-16 17:10 | DS ---
Physical Exam: SUBJECTIVE: Patient seen and reports he has yet to have a bowel movement. Patient reports he still has discomfort in his stomach. No other complaints and no other acute events overnight. OBJECTIVE: Vital Signs Temperature 98 F 07/16/18 14:16 Pulse Rate 66 07/16/18 14:16 Respiratory Rate 20 07/16/18 14:16 Blood Pressure 135/87 07/16/18 14:16 O2 Sat by Pulse Oximetry (%) 98 07/15/18 21:00 PHYSICAL EXAM GENERAL: The patient is awake, alert, and fully oriented, in no acute distress. HEAD: Normal with no signs of trauma. LUNGS: Breath sounds equal, clear to auscultation bilaterally, no wheezes, no crackles, no accessory muscle use. HEART: Regular rate and rhythm, S1, S2 without murmur, rub or gallop. ABDOMEN: mildly distended, tender to deep palpation NEUROLOGICAL: Cranial nerves II through XII grossly intact. Normal speech, gait not observed. PSYCH: Normal mood, normal affect. SKIN: Warm, dry, normal turgor, no rashes or lesions noted. LABS Laboratory Results - last 24 hr CBC, BMP 07/16/18 06:00 07/16/18 06:00 HOSPITAL COURSE: Date of Admission:07/14/18 Patient presented due to constipation. Patient diagnosed with enteritis two weeks prior. Patient continued treatment with Cipro and Flagyl for the enteritis. Patient was given Miralax and enemas, without relief. CT scan was done that did not show obstruction or megacolon. Patient instructed to follow up with GI for a Colonoscopy. Also to continue to take Miralax 34 mg TID. Patient will complete a 2 week course of Flagyl for the enteritis. Abdominal Xray: no acute pathology Abdominal CT: compared to 07/01/18 no longer possible wall thickening of colon, no acute pathology Date of Discharge: 07/16/18 Minutes to complete discharge: 37 Discharge Summary Reason For Visit: ENTERITIS,ABDOMINAL PAIN,CONSTIPATION Condition: Stable - Instructions Diet, Activity, Other Instructions: You came to the Emergency Department because you were constipated. We gave you some medication to try and help relieve this constipation. You had imaging done of your abdomen and it only showed the constipation. It is very important that you follow up with GI so that you can have a colonoscopy done to look at your colon. You should follow up with Dr. Jain in one week. For your constipation you will now take: Miralax 34 grams three times a day To complete treatment of your enteritis ( infection on your colon) you will take : Flagyl 250 mg by mouth three times a day for 14 days You should also follow up with your primary care physician within one week. You should continue your home medications as prescribed. Please return to the ED if you have any nausea, vomiting, dizziness, chest pain , or shortness of breath. Referrals: Luis M Jain MD [Staff Physician] - 1 Week Disposition: HOME - Home Medications Comprehensive Discharge Medication List: Ambulatory Orders Docusate Liquid [Colace Liquid -] 50 mg PO TID PRN #473 ml 07/01/18 Sennosides [Senna Laxative] 8.6 mg PO DAILY PRN #5 tablet 07/01/18 Polyethylene Glycol 3350 [Miralax 119 gm Btl -] 34 gm PO BID #3 bottle 07/16/18 metroNIDAZOLE [Flagyl -] 250 mg PO TID 14 Days #42 tablet 07/16/18 This patient is new to me today: Yes Date on this admission: 07/17/18 Emergency Visit: No Critical Care patient: No - Discharge Referral Referred to [facility] No
== END 2018-07-16 18:30 | disposition home or self-care (01) | DRG 249 ==
LOC: JER 23:35 → JERBED 07-14 02:14 → J7W 07-14 03:35
PROVIDERS: ADMIT Internal Medicine; ATTEND Internal Medicine
DX: K52.9 Noninfective gastroenteritis and colitis, unspecified (principal); E11.9 Type 2 diabetes mellitus without complications; K59.09 Other constipation; D72.829 Elevated white blood cell count, unspecified
CPT/HCPCS: 36415; 74019-TC-FY; 74177-TC; 80048; 80053; 82150; 82550; 82962; 83036; 83690; 83735; 84100; 84484; 85025; 93005; 93010; 99283-25; J7030; Q9967